=== PATIENT | female | born 1960 | race Caucasian/White ===

== ENCOUNTER 2017-06-09 10:58 | Outpatient (CLI) | payer BC, OTHER ==
[~2017-06-09] VITALS: Ht 162.6 cm; Wt 76.7 kg
[~2017-06-09 10:58] MED LIST: ADDE1TAB14 PO; ALLE180T33 PO; ATEN25TA PO; CYCL10TA PO; DRIS50002 PO; FERR325T3 PO; IMMUNOTHERAPY SC; LIDOCAINE 2% MDV 20 ML VIAL As Ordered ONE; MIRA0.254 PO; MULT1TAB10 PO; NALTREXONE PO; PROAAER10 INH; PROBCAP4 PO; PROPOFOL 200 MG/20 ML VIAL As Ordered ONE; RELP40TA PO; REST0.05 OU; TYLE650T35 PO
[2017-06-09] MEDS ORDERED: NS 1,000 ML IV ONE (11:30)
--- NOTE | 2017-06-09 12:36 | ROOR ---
Patient Name: Yajaira Chung Procedure Date: 06/09/2017 12:20 PM Date of : 1960 Age: 56 Room: [facility] Gender: Female Note Status: Finalized Procedure: Upper GI endoscopy + Small bowel bx. Indications: Iron deficiency anemia Providers: David Pisano MD Referring MD: James Cisse MD Requesting Provider: Medicines: Monitored Anesthesia Care Complications: No immediate complications. Procedure: Pre-Anesthesia Assessment: - The heart rate, respiratory rate, oxygen saturations, blood pressure, adequacy of pulmonary ventilation, and response to care were monitored throughout the procedure. The Endoscope was introduced through the mouth, and advanced to the second part of duodenum. The upper GI endoscopy was accomplished without difficulty. The patient tolerated the procedure well. Findings: The Z-line was irregular and was found 35 cm from the incisors. Localized mild inflammation characterized by congestion (edema) and erythema was found on the greater curvature of the stomach. Biopsies were taken with a cold forceps for Helicobacter pylori testing. The exam of the duodenum was otherwise normal. Multiple biopsies were obtained with cold forceps for evaluation of celiac disease randomly in the first portion of the duodenum. Impression: - Z-line irregular, 35 cm from the incisors. - Chronic gastritis. Biopsied. - Multiple biopsies were obtained in the first portion of the duodenum. - The examination was otherwise normal. Recommendation: - Patient has a contact number available for emergencies. The signs and symptoms of potential delayed complications were discussed with the patient. Return to normal activities tomorrow. Written discharge instructions were provided to the patient. - High fiber diet. - Discharge patient to home. - Continue present medications. - Await pathology results. - Telephone GI clinic for pathology results in 1 week. - Return to referring physician. - The findings and recommendations were discussed with the patient's family. David Pisano MD David Pisano MD 06/09/2017 12:36:21 PM This report has been signed electronically. Number of Addenda: 0 Note Initiated On: 06/09/2017 12:20 PM Estimated Blood Loss: Estimated blood loss: none.
--- NOTE | 2017-06-09 12:49 | ROOR ---
Patient Name: Yajaira Chung Procedure Date: 06/09/2017 12:21 PM Date of : 1960 Age: 56 Room: [facility] Gender: Female Note Status: Finalized Procedure: Total Colonoscopy to Cecum + ileoscopy Indications: Iron deficiency anemia Providers: David Pisano MD Referring MD: James Cisse MD Requesting Provider: Medicines: Monitored Anesthesia Care Complications: No immediate complications. Procedure: Pre-Anesthesia Assessment: - The heart rate, respiratory rate, oxygen saturations, blood pressure, adequacy of pulmonary ventilation, and response to care were monitored throughout the procedure. The Colonoscope was introduced through the anus and advanced to the terminal ileum, with identification of the appendiceal orifice and IC valve. The colonoscopy was performed without difficulty. The patient tolerated the procedure well. The quality of the bowel preparation was excellent. Findings: The perianal and digital rectal examinations were normal. Non-bleeding internal hemorrhoids were found during retroflexion. The hemorrhoids were small and Grade I (internal hemorrhoids that do not prolapse). No other significant abnormalities were identified in a careful examination of the remainder of the colon. The exam was otherwise without abnormality on direct and retroflexion views. The terminal ileum appeared normal. The exam was otherwise without abnormality on direct and retroflexion views. Impression: - Non-bleeding internal hemorrhoids. - The examination was otherwise normal on direct and retroflexion views. - The examined portion of the ileum was normal. - The examination was otherwise normal on direct and retroflexion views. - No specimens collected. - The exam was otherwise normal to the cecum. Recommendation: - Patient has a contact number available for emergencies. The signs and symptoms of potential delayed complications were discussed with the patient. Return to normal activities tomorrow. Written discharge instructions were provided to the patient. - High fiber diet. - Discharge patient to home. - Continue present medications. - Repeat colonoscopy in 10 years for screening purposes. - Return to referring physician. - The findings and recommendations were discussed with the patient's family. David Pisano MD David Pisano MD 06/09/2017 12:49:10 PM This report has been signed electronically. Number of Addenda: 0 Note Initiated On: 06/09/2017 12:21 PM Estimated Blood Loss: Estimated blood loss: none.
[2017-06-09 13:15] VITALS: BP 150/95
== END 2017-06-09 13:27 | disposition home or self-care (01) ==
LOC: M OPP 10:58
PROVIDERS: ATTEND Internal Medicine Gastroenterology
DX: D50.9 Iron deficiency anemia, unspecified (principal); K64.0 First degree hemorrhoids; K22.8 Other specified diseases of esophagus; K29.70 Gastritis, unspecified, without bleeding; Z86.010 Personal history of colon polyps; K59.00 Constipation, unspecified; K21.9 Gastro-esophageal reflux disease without esophagitis; K57.30 Diverticulosis of large intestine without perforation or abscess without bleeding; I10 Essential (primary) hypertension; R12 Heartburn; M19.90 Unspecified osteoarthritis, unspecified site; M54.2 Cervicalgia; M79.7 Fibromyalgia; F41.9 Anxiety disorder, unspecified; G43.909 Migraine, unspecified, not intractable, without status migrainosus; J45.909 Unspecified asthma, uncomplicated; G47.30 Sleep apnea, unspecified; R06.83 Snoring; Z85.3 Personal history of malignant neoplasm of breast; Z92.21 Personal history of antineoplastic chemotherapy; Z92.3 Personal history of irradiation; Z90.11 Acquired absence of right breast and nipple; Z88.8 Allergy status to other drugs, medicaments and biological substances; Z88.5 Allergy status to narcotic agent; Z88.0 Allergy status to penicillin; Z79.899 Other long term (current) drug therapy; Z80.8 Family history of malignant neoplasm of other organs or systems; Z80.49 Family history of malignant neoplasm of other genital organs; Z80.1 Family history of malignant neoplasm of trachea, bronchus and lung; Z87.891 Personal history of nicotine dependence